=== PATIENT | female | born 1985 | race Caucasian/White ===

== ENCOUNTER 2021-09-08 13:27 | Emergency (ER) | payer OTHER ==
--- NOTE | 2021-09-08 13:43 | NUR ---
Called- No response. Eloped
--- NOTE | 2021-09-08 14:00 | NUR ---
Multiple calls - No response. [facility]
--- NOTE | 2021-09-08 14:14 | NUR ---
Called- No response. Eloped
== END 2021-09-08 14:15 | disposition home or self-care (01) ==
LOC: ER 13:32
DX: Z53.21 Procedure and treatment not carried out due to patient leaving prior to being seen by health care provider (principal)